=== PATIENT | male | born 1960 ===

== ENCOUNTER 2018-07-06 07:00 | Day surgery (SDC) | payer OTHER | END 2018-07-06 13:00 | disposition home or self-care (01) | LOC: AMB-ENDOS 07:00 | DX: D12.4 Benign neoplasm of descending colon (principal); Z12.11 Encounter for screening for malignant neoplasm of colon ==

== ENCOUNTER 2024-03-23 08:01 | Outpatient (CLI) | payer OTHER | END 2024-03-23 08:08 | disposition home or self-care (01) | LOC: SONOGRAMA 08:01 | DX: R33.9 Retention of urine, unspecified (principal); R31.1 Benign essential microscopic hematuria ==